=== PATIENT | male | born 1955 | race Caucasian/White ===

== ENCOUNTER → 2023-01-28 | Outpatient (CLI) | payer MEDICARE | LOC: CARD 10:53 | PROVIDERS: ATTEND Internal Medicine Cardiovascular Disease | DX: I10 Essential (primary) hypertension (principal); I25.10 Atherosclerotic heart disease of native coronary artery without angina pectoris | CPT/HCPCS: 93306 ==

== ENCOUNTER → 2023-03-24 | Outpatient (CLI) | payer MEDICARE ==
[~2023-03-24] MED LIST: CATHETER FLUSH 10 ML SYR IVP PRN
[2023-03-24 08:52] VITALS: BP 125/65
--- NOTE | 2023-03-24 11:45 | Cardiology Stress Test Report ---
Stress Test Report Date of Procedure/Referring: Date of Procedure: Mar 24, 2023 PCP Admitting Physician Admitting Physician: Attending Physician: Louann Yo MD Indications: HTN Baseline Heart Rate: 62 Baseline Blood Pressure: Blood Pressure Systolic: 125 Blood Pressure Diastolic: 65 Vital Signs Date Time Temp Pulse Resp B/P (MAP) Pulse Ox O2 Delivery O2 Flow Rate FiO2 03/24/23 08:52 62 125/65 (85) Baseline Vital Signs Vital Signs Date Time Temp Pulse Resp B/P (MAP) Pulse Ox O2 Delivery O2 Flow Rate FiO2 03/24/23 08:52 62 125/65 (85) Baseline EKG: Baseline EKG: NSR Summary: After explaining the procedure and details to the patient, he signed the consent and was brought to the stress nuclear laboratory. Patient exercised on standard Kun protocol, EKG, heart rate and blood pressure were monitored continuously, resting and stress doses of radio tracer were injected, imaging was acquired and reviewed in the short axis, horizontal long axis and vertical long axis views Patient was able to exercise for a total of 6 minutes on Kun protocol, METs 7.3 Maximum heart rate 134 Maximum blood pressure 225/70 Stress EKG, Minimal nondiagnostic changes Recovery EKG, Return to baseline TID: 1.09 SSS: 6 SDS: 5 EF: 47 Conclusion: Fair exercise tolerance for 6 minutes on standard Kun protocol, 7.3 METS achieving 87% of maximal expected heart rate Appropriate heart rate response to exercise return to baseline during recovery, occasional PVCs and ventricular couplets noted at peak exercise level and during recovery Baseline hypertension with hypertensive response to exercise with peak blood pressure 225/70 returned to baseline during recovery Nondiagnostic EKG changes with exercise return to baseline during recovery Diaphragmatic attenuation affecting the quality of the images, there is reversible ischemia involving the mid to apical inferior wall and inferolateral wall Normal left ventricular size with hypokinesia of the inferior wall, ejection fr action 47% Copy Copies To 1: INES REAVES BASHAR J MD Mar 24, 2023 11:45
== END ==
LOC: CARD 06:58
PROVIDERS: ATTEND Internal Medicine Cardiovascular Disease
DX: I10 Essential (primary) hypertension (principal); I25.10 Atherosclerotic heart disease of native coronary artery without angina pectoris
CPT/HCPCS: 78452; 93017; A9502

== ENCOUNTER 2023-04-02 10:54 | Day surgery (SDC) | payer MEDICARE ==
[2023-04-02] VITALS (7 sets, daily range): BP systolic 127–143; BP diastolic 68–82
[2023-04-02] MEDS ORDERED: LIDOCAINE 1% INJ 20 ML VIAL ONE (11:27)
[2023-04-02] MEDS ORDERED: HEParin (CATH LAB) 2,000 ML IV ONE (11:28)
[2023-04-02] MEDS ORDERED: NS IV 1000 ML 1,000 ML ONE (11:28)
--- NOTE | 2023-04-02 12:21 | Diagnostic Imaging Report ---
Indication: Coronary artery disease. No priors Findings: Frontal chest is normal. The lungs clear. No failure, effusion or pneumothorax. Impression: Negative Dictated by: Dictated on workstation # [id number]
[2023-04-02 12:41] LABS: HEMATOCRIT 47 % (40-54); MEAN CORPUSCULAR HEMOGLOBIN 31 pg (25-34); MEAN CORPUSCULAR HGB CONC 34 g/dL (32-36); MEAN CORPUSCULAR VOLUME 89 fL (80-99); MEAN PLATELET VOLUME 10.4 fL (9.0-12.2); PLATELET COUNT 217 10^3/uL (130-400); PROTHROMBIN TIME PATIENT 13.3 SEC (12.2-14.7); WHITE BLOOD COUNT 6.1 10^3/uL (4.3-11.0)
[2023-04-02] MEDS ORDERED: INSU100I10 SQ (12:47)
[2023-04-02] MEDS ORDERED: GLIM4TAB5 PO (12:47)
[2023-04-02] MEDS ORDERED: L.AC1CAP6 PO (12:47)
[2023-04-02] MEDS ORDERED: OMEP20TA56 PO (12:47)
[2023-04-02] MEDS ORDERED: LISI10TA25 PO (12:47)
[2023-04-02] MEDS ORDERED: METF-399 PO (12:47)
[2023-04-02] MEDS ORDERED: LOVA10TA PO (12:47)
[2023-04-02] MEDS ORDERED: CALC-823 PO (12:47)
[2023-04-02] MEDS ORDERED: LOVA20TA2 PO (12:49)
[2023-04-02 12:50] LABS: ALBUMIN 4.5 GM/DL (3.2-4.5); BILIRUBIN,TOTAL 0.6 MG/DL (0.1-1.0); CALCIUM 9.1 MG/DL (8.5-10.1); POTASSIUM 4.4 MMOL/L (3.6-5.0); TOTAL PROTEIN 7.4 GM/DL (6.4-8.2)
[2023-04-02] MEDS ORDERED: MIDAZOLAM 5 MG/5 ML (VERSED) VIAL ONE (12:59)
[2023-04-02] MEDS ORDERED: fentaNYL INJ 100 MCG/2 ML AMP ONE (12:59)
[2023-04-02] MEDS ORDERED: VERAPAMIL 5 MG/2 ML (CALAN) VIAL IV ONE (12:59)
[2023-04-02] MEDS ORDERED: HEParin 1000 UNIT/ML (10ML VIAL) FOR BOLUS ONE (13:00)
[2023-04-02] MEDS ORDERED: NITRO DRIP 25000 MCG/D5W 250 ML IV ONE (13:00)
--- NOTE | 2023-04-02 14:26 | Discharge Inst-Post CATH ---
Discharge Inst-CATH/EP Problems Reviewed?: Yes Post Cardiac Cath/EP D/C Inst Follow Up/Plan Stop metformin for [address] Yo's office in 2 to 4-week <b>CARDIAC CATH/EP PROCEDURE DISCHARGE INSTRUCTIONS</b> ACTIVITY * Go Home directly and rest. * Limit activity of the leg (or wrist if it was used) for 7 days including aerobics, swimming, jogging, bicycling, etc. * Restrict stair-climbing for 7 days if possible, if not, climb up with your non-cath leg, then bring together on the same step. * Avoid lifting, pushing, pulling or excessive movement of the affected extremity for 7 days. * Customary sexual activity may be resumed after 2 days-use caution not to use a position that strains or causes pain to the affected extremity. * No driving for 24 hours. * NO SMOKING. * Avoid straining for bowel movements for 7 days. * Gentle walking on level ground is allowed. * Returning to work will depend on the type of procedure and the results. Your doctor will discuss this with you. CALL YOUR DOCTOR FOR ANY OF THE FOLLOWING: *If bleeding from the puncture site occurs- Apply gentle pressure to site with clean cloth and call your doctor or EMS. * If a knot or lump forms under the skin, increases in size, or causes pain. * If bruising appears to be worsening or moving further down your leg instead of disappearing. * Temperature above 101 F. CARE OF YOUR GROIN INCISION; * Bruising or purple discoloration of the skin near the puncture site is common. * You may shower only, no bathtub bathing for 5 days. Be careful to avoid slipping as your leg may feel stiff. * If a closure device was used on your femoral artery, please see the attached guide regarding care of the device and your leg. * Leave dressing on FOR 24 hours. CARE OF YOUR WRIST INCISION; * Bruising or purple discoloration of the skin near the puncture site is common. * You may shower. * DO NOT submerge wrist. * Leave dressing on FOR 24 hours. FELECIA YO MD April 02, 2023 14:26
[2023-04-02] MEDS ORDERED: PATIENT MAY USE OWN MEDS, ALL PO SCH (14:30)
[2023-04-02] MEDS ORDERED: NS IV 1000 ML 1,000 ML IV SCH ×2 (14:30)
--- NOTE | 2023-04-02 14:31 | Cardiac Cath Report ---
Cardiac Cath Report Physician (s)/Health Promotion Coordinator (s) Physician FELECIA MOTTA MD Pre-Procedure Diagnosis Pre-Procedure Diagnosis: Coronary artery disease Post-Procedure Note Procedure Start Date: April 02, 2023 Name of Procedure: Left heart catheterization IFR to the LAD IFR to the circumflex artery IFR to the OM1 Findings/Procedure Note PROCEDURE NOTE: 67-year-old gentleman with history of hypertension, hyperlipidemia and diabetes mellitus. Had an abnormal stress test, scheduled for cardiac catheterization possible PTCA. After explaining the procedure to the patient, all pros and cons were explained, all questions were answered. The patient signed the consent and then he was placed in the cardiac catheterization laboratory. Groin was prepped in SL fashion local anesthesia was used. Sheath placed in the right radial artery, Ovid catheter was used, across to the left ventricular cavity, pressure was measured, pullback LV to aorta was done. I was unable to engage any coronary with that catheter I used Farnaz right and was unable to engage the right coronary system with Farnaz left I was able to engage the left system and angiogram was done. I decided to proceed with a groin access. 6 Palestinian sheath was placed in the right femoral artery, Farnaz right and left were used to access the coronary system and angiogram was done. IFR was done. Patient received a total of 6000 units of heparin. EBU 3.5 guide was used. iFR wire was advanced to the obtuse marginal branch which was a small artery with 90% ostial lesion, IFR was 0.79 then the wire was retracted and redirected in the proper circumflex artery and IFR in the circumflex artery was 0.87 then the catheter was retracted and redirected in the LAD and IFR was 0.58 during pullback the lesion in the mid LAD has 0.66 improvement. At the end of the procedure the sheath was removed. Closure device to the groin and vascular band to the wrist FINDINGS: Hemodynamics LV 112/10, end-diastolic pressure of 10 Aorta 110/61 mean of 83 ANATOMY: Left Main is free of obstructive disease Left Anterior Descending is tortuous artery with mild disease proximally, 70% stenosis in the mid LAD with IFR 0.58. Left Circumflex is moderate in size, ostial circumflex stenosis with 60 to 70% stenosis with IFR across the ostial lesion 0.87. First obtuse marginal branch is a small branch with 80% ostial stenosis, IFR across the lesion was 0.79. The circumflex was a dominant artery Right Coronary Artery is nondominant artery, moderate in size with ostial/proximal 90% stenosis, mid portion has 2 lesions with 70 to 80% stenosis each. LV Gram was not done known to have normal LV size and function, normal left shivam tricular end-diastolic pressure Dominance left circumflex artery CONCLUSION: Severe multivessel disease including severe mid LAD, ostial circumflex artery and ostial obtuse marginal branch, ostial/proximal right coronary artery and mid right coronary artery. Dominant circumflex system Preserved left ventricular size and function, known to have a normal ejection fraction. Normal left ventricular end-diastolic pressure DISCUSSION AND RECOMMENDATION: Patient is diabetic with hypertension and hyperlipidemia with multivessel coronary artery disease, it is recommended to refer for evaluation for bypass surgery. Anesthesia Type: Conscious Sedation Estimated blood loss (mL): 35 ml Contrast Amount: 137 ml Total Radiation Dose: 1114 mGy Post-Procedure Diagnosis Post-operative diagnosis: Chest pain Coronary artery disease Hypertension Hyperlipidemia FELECIA MOTAT MD April 02, 2023 14:31
== END 2023-04-02 19:27 | disposition home or self-care (01) ==
LOC: CATH 10:54 → CSD 15:09 → CATH 19:27
PROVIDERS: ATTEND Internal Medicine Cardiovascular Disease
DX: I25.10 Atherosclerotic heart disease of native coronary artery without angina pectoris (principal); I10 Essential (primary) hypertension; E78.2 Mixed hyperlipidemia; E11.9 Type 2 diabetes mellitus without complications; K21.9 Gastro-esophageal reflux disease without esophagitis; I65.23 Occlusion and stenosis of bilateral carotid arteries; Z79.899 Other long term (current) drug therapy; Z87.891 Personal history of nicotine dependence; Z79.4 Long term (current) use of insulin; Z79.84 Long term (current) use of oral hypoglycemic drugs
CPT/HCPCS: 71045; 80053; 80061; 85027; 85610; 85730; 87081; 93005; 93458; 93571; 93572; C1760; C1769; C1887; C1894 ×3; 36415